=== PATIENT | male | born 1975 | race Caucasian/White ===

== ENCOUNTER 2021-07-01 13:42 | Observation (INO) ==
[2021-07-01] MEDS ORDERED: Nitroglycerin 1 INCH/GM PACKET TP ONE (14:03)
[2021-07-01] MEDS ORDERED: *HR* Metoprolol 5 MG/5 ML VIAL IVP ONE (14:07)
[2021-07-01 14:09] LABS: Basophils % 0.4 %; Eosinophils # 0.1 K/mcL (0.0-0.6); Eosinophils % 1.8 %; Hematocrit 45.2 % (37.5-50.1); Hemoglobin 14.5 g/dL (12.9-16.9); Immature Granulocytes % 0.2 % (0-4); Lymphocytes # 1.5 K/mcL (0.6-4.6); Lymphocytes % 31.4 %; Mean Corpuscular HGB Conc 32.1 g/dL (31.6-35.5); Mean Corpuscular Hemoglobin 28.4 pg (28.0-33.3); Mean Corpuscular Volume 88.5 fL (83.0-100.0); Mean Platelet Volume 12.3 fL (9.4-12.4); Monocytes # 0.3 K/mcL (0.0-1.3); Monocytes % 6.2 %; Neutrophils # 2.9 K/mcL (1.6-8.9); Platelet Count 158 K/mcL (140-400); Red Blood Count 5.11 M/mcL (4.19-5.50); Red Cell Distribution Width 14.5 % (11.5-14.5); White Blood Count 4.9 K/mcL (4.3-11.1)
[2021-07-01 14:16] LABS: INR 1.1; Prothrombin Time 12.8 Seconds (9.4-12.1)
[2021-07-01 14:19] LABS: Activated Partial Thrombo Time 37.5 Seconds (26.0-36.0)
[2021-07-01 14:33] LABS: BUN/Creatinine Ratio 15 (6-26); Blood Urea Nitrogen 22 mg/dL (6-20); Calcium 9.9 mg/dL (8.6-10.3); Carbon Dioxide 28 mEq/L (23-29); Chloride 99 mEq/L (98-107); Glucose 271 mg/dL (70-105); Osmolality,Calculated 299 (280-300); Potassium 3.9 mEq/L (3.5-5.1); Sodium 138 mEq/L (136-145); Troponin I < 0.03 ng/mL (< 0.04); eGFR For African Americans > 60 (> 60); eGFR For Non-African Americans 52 (> 60)
[2021-07-01] MEDS ORDERED: haloperidoL 5 MG TABLET PO PRN (15:51)
[2021-07-01] MEDS ORDERED: Haloperidol Lactate 5 MG/ML VIAL IM PRN (15:51)
[2021-07-01] MEDS ORDERED: Perflutren Lipid Microsphere 1.3 ML in 0.9 % Sodium Chloride 8.7 ML IVP PRN (15:55)
[2021-07-01] MEDS ORDERED: Naloxone 0.4 MG/ML INJ IVP PRN (15:58)
[2021-07-01] MEDS ORDERED: Melatonin 3 MG TABLET PO PRN (15:58)
[2021-07-01] MEDS ORDERED: *HR* Dextrose 50 % in Water (Syg) 50 ML SYRINGE IVP PRN (15:59)
[2021-07-01] MEDS ORDERED: Dextrose Gel 15 GM/37.5 ML TUBE PO PRN ×2 (15:59)
[2021-07-01] MEDS ORDERED: D5% in Water 1,000 ML IVC PRN (15:59)
[2021-07-01] MEDS ORDERED: *HR* LORazepam 2 MG/ML VIAL IM PRN (16:07)
[2021-07-01] MEDS ORDERED: traZODone 50 MG TABLET PO PRN (16:10)
[2021-07-01] MEDS ORDERED: *HR* LORazepam 1 MG TABLET PO PRN (16:11)
[2021-07-01] MEDS ORDERED: Insulin LISPRO 300 UNITS/3 ML VIAL SUBQ SCH ×4 (16:30→21:00)
[2021-07-01 16:58] LABS: Cholesterol 157 mg/dL (< 200); HDL Cholesterol 26 mg/dL (40-59); Triglycerides 933 mg/dL (< 150)
[2021-07-01] MEDS: 0.9 % Sodium Chloride 1,000 ML IVC SCH (17:43)
[2021-07-01] MEDS: *HR* Heparin 5,000 UNIT/ML VIAL SQ SCH (17:44)
[2021-07-01] MEDS: Furosemide 40 MG TABLET PO SCH (17:44)
[2021-07-01] MEDS: Gabapentin 400 MG CAPSULE PO SCH (20:14)
[2021-07-01] MEDS: hydrALAZINE 25 MG TABLET PO SCH (20:14)
[2021-07-01] MEDS ORDERED: cloNIDine HCL 0.1 MG TABLET PO SCH (21:00)
[2021-07-02] MEDS: 0.9 % Sodium Chloride 1,000 ML IVC SCH ×2 (01:02→09:22)
[2021-07-02 01:51] LABS: Basophils % 0.6 %; Eosinophils # 0.1 K/mcL (0.0-0.6); Eosinophils % 2.7 %; Hematocrit 42.3 % (37.5-50.1); Immature Granulocytes % 0.4 % (0-4); Lymphocytes % 42.4 %; Mean Corpuscular HGB Conc 30.7 g/dL (31.6-35.5); Mean Corpuscular Hemoglobin 27.4 pg (28.0-33.3); Mean Corpuscular Volume 89.1 fL (83.0-100.0); Mean Platelet Volume 12.3 fL (9.4-12.4); Monocytes # 0.3 K/mcL (0.0-1.3); Monocytes % 7.1 %; Neutrophils # 2.3 K/mcL (1.6-8.9); Platelet Count 139 K/mcL (140-400); Red Blood Count 4.75 M/mcL (4.19-5.50); Red Cell Distribution Width 14.4 % (11.5-14.5); Segmented Neutrophils % 46.8 %; White Blood Count 4.8 K/mcL (4.3-11.1)
[2021-07-02 02:26] LABS: BUN/Creatinine Ratio 15 (6-26); Blood Urea Nitrogen 21 mg/dL (6-20); Calcium 9.2 mg/dL (8.6-10.3); Carbon Dioxide 32 mEq/L (23-29); Chloride 99 mEq/L (98-107); Glucose 229 mg/dL (70-105); Osmolality,Calculated 300 (280-300); Potassium 3.8 mEq/L (3.5-5.1); Sodium 140 mEq/L (136-145); eGFR For African Americans > 60 (> 60); eGFR For Non-African Americans 56 (> 60)
[2021-07-02 02:32] VITALS: BP 120/67; PULSE 67; TEMP 98
[2021-07-02] MEDS: *HR* Heparin 5,000 UNIT/ML VIAL SQ SCH (05:21)
[2021-07-02 05:27] VITALS: O2SAT 93
[2021-07-02] MEDS ORDERED: Regadenoson 0.4 MG/5 ML SYRINGE IVP ONE (06:17)
[2021-07-02 08:41] LABS: Estimated Average Glucose 289 mg/dl; Hemoglobin A1C 11.7 %
[2021-07-02] MEDS ORDERED: Aspirin 81 MG TAB.CHEW PO SCH (09:00)
[2021-07-02] MEDS ORDERED: Fluticasone Propionate Nasal 50 MCG/SPRAY BOTTLE NS SCH (09:00)
[2021-07-02] MEDS ORDERED: Loratadine 10 MG TABLET PO SCH (09:00)
[2021-07-02] MEDS ORDERED: amLODIPine 5 MG TABLET PO SCH (09:00)
[2021-07-02] MEDS ORDERED: ARIPiprazole 10 MG TABLET PO SCH (09:00)
[2021-07-02] MEDS: hydrALAZINE 25 MG TABLET PO SCH (09:13)
[2021-07-02] MEDS: Gabapentin 400 MG CAPSULE PO SCH (09:13)
[2021-07-02] MEDS: Furosemide 40 MG TABLET PO SCH (09:13)
== END 2021-07-02 15:26 ==
LOC: EMEROOARM 13:42 → 3BNU 13:42
PROVIDERS: ADMIT Internal Medicine; ATTEND Internal Medicine